=== PATIENT | male | born 1995 | race Caucasian/White ===

== ENCOUNTER → 2024-08-18 | Outpatient (CLI) | payer OTHER, SELFPAY ==
[2024-08-18 13:01] LABS: Hematocrit 38.2 % (40-54); Hemoglobin 12.7 g/dL (13.0-16.5); Mean Corp Hgb Conc 33.2 g/dL (32-36); Mean Corpuscular Hgb 29.1 pg (27.0-32.0); Mean Corpuscular Volume 87.4 fL (80-94); Mean Platelet Vol. 8.9 fl (6.2-12.0); Platelet Count 219 K/mm3 (150-450); RBC Distribution Width CV 11.9 % (11.6-14.6); RBC Distribution Width SD 38.5 fl (35.1-43.9); Red Blood Count 4.37 M/mm3 (4.6-6.2); White Blood Count 5.2 K/mm3 (4.4-11.0)
[2024-08-18 13:20] LABS: Vitamin D,25 Hydroxy 7.6 ng/mL
[2024-08-18 13:27] LABS: Amphetamine Urine VISTA NEGATIVE (<1000 ng/mL); Barbiturate Urine VISTA NEGATIVE (< 200 ng/mL); Benzodiazepine Urine VISTA NEGATIVE (< 200 ng/mL); Cocaine Urine VISTA NEGATIVE (< 300 ng/mL); Ecstacy Urine VISTA NEGATIVE (< 500 ng/mL); Methadone Urine VISTA NEGATIVE (< 300 ng/mL); PCP Urine VISTA NEGATIVE (< 25 ng/mL); THC Urine VISTA NEGATIVE (< 50 ng/mL); Vista UDS pH Range 6
[2024-08-18 13:29] LABS: ALB/GLOB Ratio 1.2 RATIO (0.9-2.4); AST(SGOT) 7 U/L (15-37); Alanine Aminotransfer ALT/SGPT 17 U/L (16-61); Albumin, Serum 4.1 g/dL (3.2-5.0); Alkaline Phosphatase 55 U/L (45-117); Anion Gap 6 (5-15); BUN 14 mg/dL (7-18); BUN/Creat Ratio 13.7 RATIO (10-20); Calcium,Total 9.1 mg/dL (8.5-10.1); Chloride 106 mmol/L (98-107); Creatinine, Serum 1.02 mg/dL (0.70-1.30); EST Glomerular Filtration Rate 91 mL/min (>60); Est Glom Filt Rate - Afr Amer 110 mL/min (>60); Globulin 3.4 g/dL (2.2-4.2); Glucose 102 mg/dL (74-106); Potassium 3.8 mmol/L (3.5-5.1); Protein, Total 7.5 g/dL (6.4-8.2); Sodium Level 138 mmol/L (136-145)
[2024-08-19 12:28] LABS: Iron 66 ug/dL (65-175)
[2024-08-19 12:30] LABS: Iron Binding Capacity,Total 332 ug/dL (250-450)
[2024-08-19 12:57] LABS: Vitamin B12 488 pg/mL (211-911)
== END | disposition home or self-care (01) ==
PROVIDERS: PCP Nurse Practitioner Family; Referring Provider Nurse Practitioner Family; Visit Provider Nurse Practitioner Family
DX: D64.9 Anemia, unspecified (principal); F90.0 Attention-deficit hyperactivity disorder, predominantly inattentive type; F41.1 Generalized anxiety disorder
CPT/HCPCS: 36415; 80053; 80307; 82306; 82607; 83540; 83550; 84443; 85027

== ENCOUNTER 2025-01-15 10:14 | Emergency (ER) | payer OTHER, SELFPAY ==
[2025-01-15 10:15] VITALS: BP 141/88; PULSE 82; RESP 16; TEMP 36.2; O2SAT 100; BMI 23.9
--- NOTE | 2025-01-15 10:34 | EDS_ITS ---
HPI History of Present Illness Chief Complaint: Eye Problem Informant: patient Narrative Narrative: Patient is a 29-year-old male presenting with left sided eye pain. He states he normally wears contact lenses but his eye has been dry and itchy over the past few days so he had not been wearing them. He put the back in last night before going to work. Throughout the night he had increased eye pain mostly in the left but some discomfort on the right as well. He states there is associated light sensitivity and and he feels it is hard to open his left eye. He states the pain is sharp and scratching in nature. It hurts when he blinks as well. After work he got some gas station eyedrops which helped for the right eye but not the left. [facility] who did an eye exam and from what he describes applied tetracaine and did a fluorescein exam. They are concerned about the amount of uptake they were seen with fluorescein and recommend he come to the ER for further evaluation. Patient does not think he has contact send right now but states is possible there could be wood stuck as he does sleep with him. He denies any associated headache, nausea or vomiting. Denies any significant vision changes when he is wearing his glasses. 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 01/15/25 Unknown Rx %) eye drops (Zaditor) symptoms #5 mL Allergy/AdvReac Type Severity Reaction Status Date / Time No Known Allergies Allergy Verified 01/15/25 10:26 Social History Smoking Status: Current every day smoker tobacco type: cigarettes ROS ROS ED Constitutional Constitutional ED: Denies chills or fever(s) Eyes Eyes: Reports other Details: Bilateral eye pain left worse than right ; Denies change in vision ENT ENT ED: Reports rhinorrhea; Denies sore throat Respiratory/Chest Respiratory/Chest: Denies cough or dyspnea Gastrointestinal Gastrointestinal: Denies nausea or vomiting Integumentary Denies rash Neurologic Neurologic: Denies headache(s) EXAM Physical Exam Const Vital Signs: 01/15/25 10:15 Temperature 97.2 F L Temperature Source Temporal Pulse Rate 82 Respiratory Rate 16 Blood Pressure 141/88 H Blood Pressure Mean 105 Pulse Ox 100 Oxygen Delivery Method Room Air Positive well nourished and well developed General Appearance ED: well developed and NAD HEENT atraumatic Nose: external nose normal Eyes Eyes Narrative: Mild edema of the eyelids, left worse than right. No significant drainage appreciated. Conjunctival injection present bilaterally but more pronounced on the left. EOMI, PERRL. Hyperemia noticed of the upper and lower eyelids inner surface on the left. On fluorescein exam there is punctate uptake throughout the anterior eye on the left. No significant uptake on the right. No ulceration appreciated. Negative Sidel sign. Neck supple Resp normal respiratory effort Cardio regular rate and regular rhythm Neuro oriented x3 and CN's II-XII intact bilaterally Sensorium / Orientation: alert Motor Exam: Negative for general weakness Skin Rashes: no rashes MDM MDM MDM Narrative Medical decision making narrative: Patient evaluated for bilateral eye pain that significantly worse in the left eye while working tonight and wearing his contact lenses. Differential includes corneal abrasion, allergic conjunctivitis, retained contact and bacterial conjunctivitis. Fluorescein exam is most consistent with allergic conjunctivitis/dry eye with possible superimposed corneal abrasion. Clinical picture over the past few days is more consistent with allergies. Patient has applied erythromycin ointment to his eyes today. Will be given a prescription for Cipro otic drops to use throughout the day and antihistamine eyedrops as well. Instructed follow-up with ophthalmology. Counseled to not wear contact lenses until follows up with ophthalmology. Is given other remaining tetracaine for his pain but counseled to not use that for more than 24 hours and the risk of corneal ulceration with prolonged use. He does verbalize agreement understand with this. Also instructed to start taking a daily antihistamine. Given return precautions. Discharged home in stable condition. Discharge Plan Triage Chief Complaint: Eye Problem ED Provider: Cheryl Varner Dx/Rx/DC Orders Clinical Impression: Acute allergic conjunctivitis of both eyes, Corneal abrasion of left eye due to contact lens Instructions: ED Conjunctivitis, Allergic, ED Corneal Abrasion Prescriptions: New cetirizine [Zyrtec] 10 mg tablet 10 mg PO DAILY Qty: 14 0RF ketotifen fumarate [Zaditor] 0.025 % (0.035 %) drops 1 drp EACH EYE BID PRN (Reason: allergy symptoms) Qty: 5 0RF Rx Instructions: administer at least 8 hours apart ciprofloxacin HCl 0.3 % drops See Rx Instructions .ROUTE .COMPLEX Qty: 2.5 0RF Rx Instructions: put 1-2 drps in affected eye(s) every 2hr up to 8 times/day x2days; then 4 times/day x5days- left eye No Action ondansetron [Zofran ODT] 4 MG tablet,disintegrating 4 mg PO Q4H PRN PRN (Reason: Nausea) Qty: 7 0RF Rx Instructions: Primary Care Provider: Roxi Cabrera Referrals: Jeremías Davalos MD [Med Staff - Active Staff] - Roxi Cabrera, PATIENT EXPERIENCE COORDINATOR-C [Primary Care Provider] - Activity Restrictions/Additional Instructions: You likely have a mixture of allergic conjunctivitis with a superimposed corneal abrasion to your left eye. Apply the antihistamine eyedrops (ketotifen) to both eyes twice a day for this. Take daily Zyrtec. Use the ciprofloxacin drops to the left eye as instructed. At nighttime I recommend using the erythromycin ointment given here to the left eye. You were given the remainder of the numbing eyedrops (tetracaine). Please make sure you do not use this for more than 24 hours because of risk of corneal ulceration and further complications. Do not wear contacts until cleared by ophthalmology. Please call the [facility] tomorrow to arrange close follow-up. Let them know you are seen in the ER. Print Language: Slovenian Disposition Disposition: Home, Self Care
--- OUTSIDE RECORDS SUMMARY | 2025-01-15 10:39 | XMS RPT_ITS | CCD ---
Author Organization [facility] Care Team Providers Care Heat Treat Puller Name Role Phone Unavailable Primary Care Provider Ju FERNANDO, Roxi Referring Ju FERNANDO, Roxi Attending Ju FERNANDO, Roxi Primary Care Avelino trujillo Allergies Allergy Classification Reported Allergen(s) Allergy Type Date of Onset Reaction(s) Facility (2 sources) Animal Dander; Translations: [ANIMAL DANDER] Drug Allergy 06-18-2021 Intolerance [facility] Medications Current Medications Medication Drug Class(es) Dates Sig (Normalized) Sig (Original) amoxicillin 500 mg oral capsule (1 source) Penicillin-class Antibacterial Start: 10-01-2022 End: 10-11-2022 take 1 capsule by mouth twice daily amoxicillin (POLYMOX, AMOXIL) 500 mg capsule Take 1 capsule by mouth twice daily for 10 days. 20 capsule 0 10/01/2022 10/11/2022 Active Comment on above: Take 1 capsule by [facility] twice daily for 10 days. Problems Problem Classification Problem Date Documented Da te Episodic/Chronic Deficiency and other anemia (1 source) Anemia, unspecified; Translations: [Anemia, unspecified] Onset: 09-07-2024 Episodic Immunizations and screening for infectious disease (1 source) Suspected disease caused by 2019-nCoV; Translations: [Suspected COVID-19 virus infection] Episodic Other upper respiratory infections (2 sources) Sore throat symptom; Translations: [Acute pharyngitis, unspecified] Episodic Results Test Name Value Interpretation Reference Range Facil liberty Lemonon 08-19-2024 Iron [Mass/Vol] 66 ug/dL Normal 65-175 [facility] Comment on above: Performed By: #### L 503.6183 #### [facility] [address] [place], [address] Iron Binding Capacity,Totalo n 08-19-2024 TIBC 332 ug/dL Normal 250-450 [facility] Comment on above: Performed By: #### L 503.6075, L503.0105 #### [facility] [address] [place], [address] Vitamin B12on 08-19-2024 Cobalamin (Vitamin B12) [Mass/Vol] 488 pg/mL Normal 211-911 [facility] Comment on above: Performed By: #### L 503.6075, L503.0105 #### [facility] [address] [place], [address] CBC-Complete Blood Cnt No Di ffon 08-18-2024 Erythrocyte distribution width (RBC) [Ratio] 11.9 % Normal 11.6-14.6 [facility] Comment on above: Performed By: #### L 506.1000, L500.4050, L501.9520, L505.5000, L100.0500 #### [facility] [address] [place], [address] Hematocrit (Bld) [Volume fraction] 38.2 % Low 40-54 [facility] Comment on above: Performed By: #### L 506.1000, L500.4050, L501.9520, L505.5000, L100.0500 #### [facility] [address] [place], [address] Hemoglobin (Bld) [Mass/Vol] 12.7 g/dL Low 13.0-16.5 [facility] Comment on above: Performed By: #### L 506.1000, L500.4050, L501.9520, L505.5000, L100.0500 #### [facility] [address] [place], [address] MCH (RBC) [Entitic mass] 29.1 pg Normal 27.0-32.0 [facility] Comment on above: Performed By: #### L 506.1000, L500.4050, L501.9520, L505.5000, L100.0500 #### [facility] [address] [place], [address] MCHC (RBC) [Mass/Vol] 33.2 g/dL Normal 32-36 [facility] Comment on above: Performed By: #### L 506.1000, L500.4050, L501.9520, L505.5000, L100.0500 #### [facility] [address] [place], [address] MCV (RBC) [Entitic vol] 87.4 fL Normal 80-94 [facility] Comment on above: Performed By: #### L 506.1000, L500.4050, L501.9520, L505.5000, L100.0500 #### [facility] [address] [place], [address] Platelet mean volume (Bld) [Entitic vol] 8.9 fL Normal 6.2-12.0 [facility] Comment on above: Performed By: #### L 506.1000, L500.4050, L501.9520, L505.5000, L100.0500 #### [facility] [address] [place], [address] Platelets (Bld) [#/Vol] 219 10*3/uL Normal 150-450 [facility] Comment on above: Performed By: #### L 506.1000, L500.4050, L501.9520, L505.5000, L100.0500 #### [facility] [address] [place], [address] RBC (Bld) [#/Vol] 4.37 10*6/uL Low 4.6-6.2 [facility] Comment on above: Performed By: #### L 506.1000, L500.4050, L501.9520, L505.5000, L100.0500 #### [facility] [address] [place], [address] RDW SD 38.5 fl Normal 35.1-43.9 [facility] Comment on above: Performed By: #### L 506.1000, L500.4050, L501.9520, L505.5000, L100.0500 #### [facility] [address] [place], [address] WBC (Bld) [#/Vol] 5.2 10*3/uL Normal 4.4-11.0 [facility] Comment on above: Performed By: #### L 506.1000, L500.4050, L501.9520, L505.5000, L100.0500 #### [facility] [address] [place], [address] Comprehensive Metabolic Prof [facility] 08-18-2024 Albumin [Mass/Vol] 4.1 g/dL Normal 3.2-5.0 [facility] Comment on above: Performed By: #### L 506.1000, L500.4050, L501.9520, L505.5000, L100.0500 #### [facility] [address] [place], [address] Albumin/Globulin [Mass ratio] 1.2 {ratio} Normal 0.9-2.4 [facility] Comment on above: Performed By: #### L 506.1000, L500.4050, L501.9520, L505.5000, L100.0500 #### [facility] [address] [place], [address] ALK P 55 U/L Normal 45-117 [facility] Comment on above: Performed By: #### L 506.1000, L500.4050, L501.9520, L505.5000, L100.0500 #### [facility] [address] [place], [address] ALT [Catalytic activity/Vol] 17 U/L Normal 16-61 [facility] Comment on above: Performed By: #### L 506.1000, L500.4050, L501.9520, L505.5000, L100.0500 #### [facility] [address] [place], [address] AST [Catalytic activity/Vol] 7 U/L Low 15-37 [facility] Comment on above: Performed By: #### L 506.1000, L500.4050, L501.9520, L505.5000, L100.0500 #### [facility] [address] [place], [address] Bilirubin [Mass/Vol] 0.90 mg/dL Normal 0.20-1.00 [facility] Comment on above: Result Comment: For patients on eltrombopag therapy, use of Dimension Durant TBIL is not recommended. Performed By: #### L 506.1000, L500.4050, L501.9520, L505.5000, L100.0500 #### [facility] [address] [place], [address] BUN/CRE 13.7 RATIO Normal 10-20 [facility] Comment on above: Performed By: #### L 506.1000, L500.4050, L501.9520, L505.5000, L100.0500 #### [facility] [address] [place], [address] CA,Total 9.1 mg/dL Normal 8.5-10.1 [facility] Comment on above: Performed By: #### L 506.1000, L500.4050, L501.9520, L505.5000, L100.0500 #### [facility] [address] [place], [address] Chloride [Moles/Vol] 106 mmol/L Normal 98-107 [facility] Comment on above: Performed By: #### L 506.1000, L500.4050, L501.9520, L505.5000, L100.0500 #### [facility] [address] [place], [address] CO2 [Moles/Vol] 26.0 mmol/L Normal 21.0-32.0 [facility] Comment on above: Performed By: #### L 506.1000, L500.4050, L501.9520, L505.5000, L100.0500 #### [facility] [address] [place], [address] Creatinine [Mass/Vol] 1.02 mg/dL Normal 0.70-1.30 [facility] Comment on above: Result Comment: The validity of the calculated GFR GFRAA in patients over 70 years has not been determined. Clinical correlation is essential. Performed By: #### L 506.1000, L500.4050, L501.9520, L505.5000, L100.0500 #### [facility] [address] [place], [address] EST GFR - AA 110 mL/min Normal >60 [facility] Comment on above: Result Comment: Afri can Greek GFR Calc Performed By: #### L 506.1000, L500.4050, L501.9520, L505.5000, L100.0500 #### [facility] [address] [place], [address] GAP 6 Normal 5-15 [facility] Comment on above: Performed By: #### L 506.1000, L500.4050, L501.9520, L505.5000, L100.0500 #### [facility] [address] [place], [address] GFR/1.73 sq M.predicted among non-blacks MDRD (S/P/Bld) [Vol rate/Area] 91 mL/min/{1.73_m2} Normal >60 [facility] Comment on above: Result Comment: Non- GFR Calc Performed By: #### L 506.1000, L500.4050, L501.9520, L505.5000, L100.0500 #### [facility] [address] [place], [address] Globulin (S) [Mass/Vol] 3.4 g/dL Normal 2.2-4.2 [facility] Comment on above: Performed By: #### L 506.1000, L500.4050, L501.9520, L505.5000, L100.0500 #### [facility] [address] [place], [address] Glucose [Mass/Vol] 102 mg/dL Normal 74-106 [facility] Comment on above: Result Comment: Fast ing Glucose result from 100 to 125 mg/dL suggests IMPAIRED HOMEOSTASIS per A.D.A. criteria. Performed By: #### L 506.1000, L500.4050, L501.9520, L505.5000, L100.0500 #### [facility] [address] [place], [address] Potassium [Moles/Vol] 3.8 mmol/L Normal 3.5-5.1 [facility] Comment on above: Performed By: #### L 506.1000, L500.4050, L501.9520, L505.5000, L100.0500 #### [facility] [address] [place], [address] Sodium [Moles/Vol] 138 mmol/L Normal 136-145 [facility] Comment on above: Performed By: #### L 506.1000, L500.4050, L501.9520, L505.5000, L100.0500 #### [facility] [address] [place], [address] T PROT 7.5 g/dL Normal 6.4-8.2 [facility] Comment on above: Performed By: #### L 506.1000, L500.4050, L501.9520, L505.5000, L100.0500 #### [facility] [address] [place], [address] Urea nitrogen [Mass/Vol] 14 mg/dL Normal 7-18 [facility] Comment on above: Performed By: #### L 506.1000, L500.4050, L501.9520, L505.5000, L100.0500 #### [facility] [address] [place], [address] Thyroid Stim Hormone (TSH)on 08-18-2024 TSH 1.170 uIU/mL Normal 0.358-3.740 [facility] Comment on above: Performed By: #### L 506.1000, L500.4050, L501.9520, L505.5000, L100.0500 #### [facility] [place], [place], [facility] Urine Drug Screen (VISTA)on 08-18-2024 AMPHETAMINES Negative Normal <1000 ng/mL [facility] Comment on above: Order Comment: UNK Performed By: #### L 506.1000, L500.4050, L501.9520, L505.5000, L100.0500 #### [facility] [place], [address] BARBITIURATES Negative Normal < 200 ng/mL [facility] Comment on above: Order Comment: UNK Performed By: #### L 506.1000, L500.4050, L501.9520, L505.5000, L100.0500 #### [facility] [address] [place], [address] BENZODIAZIPINE Negative Normal < 200 ng/mL [facility] Comment on above: Order Comment: UNK Performed By: #### L 506.1000, L500.4050, L501.9520, L505.5000, L100.0500 #### [facility] [address] [place], [address] COCAINE Negative Normal < 300 ng/mL [facility] Comment on above: Order Comment: UNK Performed By: #### L 506.1000, L500.4050, L501.9520, L505.5000, L100.0500 #### [facility] [address] [place], [address] ECSTACY Negative Normal < 500 ng/mL [facility] Comment on above: Order Comment: UNK Performed By: #### L 506.1000, L500.4050, L501.9520, L505.5000, L100.0500 #### [facility] [address] [place], [address] METHADONE Negative Normal < 300 ng/mL [facility] Comment on above: Order Comment: UNK Performed By: #### L 506.1000, L500.4050, L501.9520, L505.5000, L100.0500 #### [facility] [address] [place], [address] OPIATES Negative Normal < 300 ng/mL [facility] Comment on above: Order Comment: UNK Performed By: #### L 506.1000, L500.4050, L501.9520, L505.5000, L100.0500 #### [facility] [address] [place], [address] PCP Negative Normal < 25 ng/mL [facility] Comment on above: Order Comment: UNK Performed By: #### L 506.1000, L500.4050, L501.9520, L505.5000, L100.0500 #### [facility] [address] [place], [address] THC Negative Normal < 50 ng/mL [facility] Comment on above: Order Comment: UNK Performed By: #### L 506.1000, L500.4050, L501.9520, L505.5000, L100.0500 #### [facility] [address] [place], [address] VISTA UDS PH 6 Normal [facility] Comment on above: Order Comment: UNK Performed By: #### L 506.1000, L500.4050, L501.9520, L505.5000, L100.0500 #### [facility] [address] [place], [address] Vitamin D,25 Hydroxyon 08-18 Vitamin D 25-OH 7.6 ng/mL Normal [facility] Comment on above: Result Comment: Claire min D 25(OH) Status Range Deficiency <20 ng/mL (50nmol/L) Insufficiency 20 - 30 ng/mL (50 - 75 nmol/L) Sufficiency 30 - 100 ng/mL (75 - 250 nmol/L) Toxicity >100 ng/mL (>250 nmol/L) Performed By: #### L 506.1000, L500.4050, L501.9520, L505.5000, L100.0500 #### [facility] [address] [place], [address] CNOVon 10-01-2022 CNOV Office Visit (UCWSTR) ---- STACEY CARRIZALES ([id number]) 1995 M Date Time Provider Department 10/01/22 10:15 AM TELLY AWAD [facility] During your visit today, we recorded the following information about you: Temperature Pulse Respiration Blood pressure 99.7 degrees 86/minute 16/minute 108/78 Weight 72.4 kg Telly Awad APRN.SIDE GLUER 10/01/2022 10:28 AM Signed Subjective HPI Nontoxic-appearing male presents to urgent care with a chief complaint of sore throat. Duration of symptoms 4 days. Associated symptoms sore throat, fever, nausea, and headache. Patient states history of strep throat in the past with similar signs of symptoms. Patient states positive sick contacts. Patient denies any trismus, difficulty swallowing, difficulty handling secretions, decreased range of motion of neck, vomiting, abdominal pain, visual changes, acute headache, cough, pleuritic pain, or change in bowel or bladder habits. Past medical history prescription medication use allergies reviewed. .Patient presents with: Sore Throat: ST, congestion, VENTURA and bodyaches x 4 days PAST MEDICAL HISTORY Diagnosis Date Collar bone fracture 1997 NEGATIVE MEDICAL HISTORY 12-30-2011 Normal Color Vision Varicella 2001 2nd grade PAST SURGICAL HISTORY Procedure Laterality Date CIRCUMCISION W/CLAMP/OTH DEV W/BLOCK ALLERGIES Animal Dander MEDICATIONS No prescriptions on file. FAMILY HISTORY Problem Relation Age of Onset Diabetes Father Social History Tobacco Use Smoking status: Never Smokeless tobacco: Never Substance Use Topics Alcohol use: No Drug use: No BP 108/78 Pulse 86 Temp 37.6 ?C (99.7 ?F) (Tympanic) Resp 16 Wt 72.4 kg (159 lb 9.6 oz) SpO2 96% Review of Systems Constitutional: Positive for fever. Negative for chills and malaise/fatigue. HENT: Positive for congestion and sore throat. Negative for ear discharge, ear pain and sinus pain. Eyes: Negative for blurred vision, pain, discharge and redness. Respiratory: Negative for cough, hemoptysis, sputum production, shortness of breath, wheezing and stridor. Cardiovascular: Negative for chest pain. Gastrointestinal: Negative for abdominal pain, diarrhea, nausea and vomiting. Musculoskeletal: Negative for myalgias. Skin: Negative for itching and rash. Neurological: Positive for headaches. Negative for dizziness. Objective Physical Exam Constitutional: General: He is not in acute distress. Appearance: He is not diaphoretic. HENT: Head: Normocephalic. Jaw: No trismus, tenderness, swelling or pain on movement. Mouth/Throat: Lips: Shafter. Mouth: Mucous membranes are moist. Pharynx: Uvula midline. Posterior oropharyngeal erythema present. No pharyngeal swelling, oropharyngeal exudate or uvula swelling. Tonsils: No tonsillar exudate or tonsillar abscesses. Eyes: Conjunctiva/sclera: Conjunctivae normal. Pupils: Pupils are equal, round, and reactive to light. Cardiovascular: Rate and Rhythm: Normal rate and regular rhythm. Heart sounds: Normal heart sounds. Pulmonary: Effort: Pulmonary effort is normal. No tachypnea, accessory muscle usage or respiratory distress. Breath sounds: Normal breath sounds. No stridor. No wheezing, rhonchi or rales. Abdominal: Palpations: Abdomen is soft. Tenderness: There is no abdominal tenderness. There is no guarding or rebound. Musculoskeletal: Cervical back: Normal range of motion and neck supple. No rigidity or tenderness. Lymphadenopathy: Cervical: No cervical adenopathy. Skin: General: Skin is warm and dry. Neurological: Mental Status: He is alert and oriented to person, place, and time. ASSESSMENT/PLAN: 1. Sore throat - ICD9: 462, ICD10: J02.9 (primary diagnosis) - STREP A MOLECULAR (POC) 2. Strep throat - ICD9: 034.0, ICD10: J02.0 Strep test positive. Placed on amoxicillin. Red flags prompt reevaluation discussed. Patient was educated on supportive therapies. Patient will follow up with primary care provider as needed. Patient was instructed to immediately proceed to emergency room for any new, worsening, or symptoms lasting longer than anticipated. The patient's clinical presentation is otherwise unremarkable at this time. Based on exam and clinical finding, the patient is stable for discharge. Plan of care was discussed with patient. Patient verbalizes understanding and agrees to plan of care. This note was generated using [employer] software. It may contain errors in wording, punctuation, or spelling. Telly Awad APRN.PADDY Awad APRN.CNP 10/01/2022 10:28 AM Signed How to Manage Common Symptoms Associated with COVID for Adults Fever- Fever is a temperature over 100.4 F and can occur when the body is fighting an infection. To help treat a fever: Drink plenty of fluids and stay well hydrated. Eat small amounts of easy to digest food. R (more content not included)... Normal [facility] FLUABV + SARS-CoV-2 Pnl Resp EDUAR+prbon 10-01-2022 Influenza virus A and B RNA and SARS-CoV-2 (COVID-19) N gene panel EDUAR+probe (Resp) COVID 19 RESULT: Detected The method used is RT-PCR or an equivalent NAAT method. Reference Range (the expected result in uninfected individuals): Not detected INFLUENZA A PCR: Not detected INFLUENZA B PCR: Not detected Abnormal [facility] Comment on above: Performed By: #### 9 [id number] #### [facility] CLIA [id number] [address] [place] [address] [facility] Vital Signs Date Time Vital Sign Value Performing Clinician Tulio stout 10-01-2022 09:58-0500 Body temperature 99.7 [degF] Telly Awad SHEET METAL ENGINEER.SIDE GLUER Work Phone: [facility] 10-01-2022 09:58-0500 Body weight 72.39 kg Telly Awad SHEET METAL ENGINEER.SIDE GLUER Work Phone: [facility] 10-01-2022 09:58-0500 Diastolic blood pressure 78 mm[Hg] Telly Awad SHEET METAL ENGINEER.SIDE GLUER Work Phone: [facility] 10-01-2022 09:58-0500 Heart rate 86 /min Telly Awad SHEET METAL ENGINEER.SIDE GLUER Work Phone: [facility] 10-01-2022 09:58-0500 Respiratory rate 16 /min Telly Awad SHEET METAL ENGINEER.SIDE GLUER Work Phone: [facility] 10-01-2022 09:58-0500 SaO2% (BldA) [Mass fraction] 96 % Telly Awad SHEET METAL ENGINEER.SIDE GLUER Work Phone: [facility] 10-01-2022 09:58-0500 Systolic blood pressure 108 mm[Hg] Telly Awad SHEET METAL ENGINEER.SIDE GLUER Work Phone: [facility] Encounters Encounter Date Encounter Type Care Provider Facility Start: 08-18-2024 End: 08-18-2024 ambulatory Roxi Cabrera [facility] Facility:[facility] Start: 10-01-2022 End: 10-01-2022 ambulatory Facility:[facility] Start: 10-01-2022 End: 10-01-2022 Office outpatient visit 15 minutes Telly Awad APRN.SIDE GLUER Work Phone: [facility] Comment on above: Sore throat (Primary Dx); Strep throat; Suspected COVID-19 virus infection Plan of Treatment Date Care Activity Detail Author Start: 10-01-2022 End: 10-15-2022 Influenza virus A and B RNA and SARS-CoV-2 (COVID-19) N gene panel - Respiratory specimen by EDUAR with probe detection [facility] Work Phone: Comment on above: Expected: 10/01/2022 , Expires: 10/15/2022 Start: 08-10-2022 DEPRESSION ASSESSMENT DEPRESSION ASS ESSMENT [facility] Start: 04-10-2022 Influenza vaccination INFLUENZA (#1) [facility] Start: 12-29-2021 Urine microalbumin profile DTAP,TDAP,TD (7 - Td or Tdap) [facility] Start: 09-24-2021 COVID-19 VACCINE (3 - Booster for Fatimah series) COVID-19 VACCINE (3 - Booster for Fatimah series) [facility] Start: 2012 HEPATITIS C SCREENING HEPATITIS C SC REENING [facility] Start: 2012 HIV SCREENING HIV SCREENING [facility] STREP A MOLECULAR (POC) STREP A MOLECULAR (POC) Microbiology Routine Sore throat Ordered: 10/01/2022 [facility] Work Phone: Comment on above: Ordered: 10/01/2022 Immunizations Immunization Date Immunization Notes Care Provider Kaushal wise 02-03-2013 hepatitis A vaccine, unspecified formulation Telly Awad APRN.CNP Work Phone: [facility] Work Phone: 08-04-2012 hepatitis A vaccine, unspecified formulation Telly Awad APRN.SIDE GLUER Work Phone: [facility] 08-04-2012 influenza virus vaccine, live, attenuated, for intranasal use Telly Awad APRN.SIDE GLUER Work Phone: [facility] 08-04-2012 Meningococcal, MCV4, unspecified conjugate formulation(groups A, C, Y and W-135) Telly Awad APRN.CNP Work Phone: [facility] 12-30-2011 tetanus toxoid, reduced diphtheria toxoid, and acellular pertussis vaccine, adsorbed [facility] SHEET METAL ENGINEER.SIDE GLUER Work Phone: [facility] 12-05-1999 diphtheria, tetanus toxoids and acellular pertussis vaccine [facility] SHEET METAL ENGINEER.SIDE GLUER Work Phone: [facility] 12-05-1999 measles, mumps and rubella virus vaccine [facility] SHEET METAL ENGINEER.SIDE GLUER Work Phone: [facility] 12-05-1999 poliovirus vaccine, inactivated [facility] SHEET METAL ENGINEER.SIDE GLUER Work Phone: [facility] 08-10-1997 [facility].SIDE GLUER Work Phone: [facility] 12-03-1995 diphtheria, tetanus toxoids and acellular pertussis vaccine [facility] SHEET METAL ENGINEER.SIDE GLUER Work Phone: [facility] 12-03-1995 haemophilus influenz ae type b vaccine, HbOC conjugate [facility] SHEET METAL ENGINEER.SIDE GLUER Work Phone: [facility] 09-03-1995 hepatitis B vaccine, pediatric or pediatric/adolescent dosage [facility] SHEET METAL ENGINEER.SIDE GLUER Work Phone: [facility] 09-03-1995 measles, mumps and rubella virus vaccine [facility] SHEET METAL ENGINEER.SIDE GLUER Work Phone: [facility] 04-02-1995 diphtheria, tetanus toxoids and acellular pertussis vaccine [facility] SHEET METAL ENGINEER.SIDE GLUER Work Phone: [facility] 04-02-1995 haemophilus influenz ae type b vaccine, HbOC conjugate [facility] SHEET METAL ENGINEER.SIDE GLUER Work Phone: [facility] 04-02-1995 poliovirus vaccine, inactivated [facility] SHEET METAL ENGINEER.SIDE GLUER Work Phone: [facility] 01-29-1995 diphtheria, tetanus toxoids and acellular pertussis vaccine [facility] SHEET METAL ENGINEER.SIDE GLUER Work Phone: [facility] 01-29-1995 haemophilus influenz ae type b vaccine, HbOC conjugate [facility] SHEET METAL ENGINEER.SIDE GLUER Work Phone: [facility] 01-29-1995 hepatitis B vaccine, pediatric or pediatric/adolescent dosage [facility] SHEET METAL ENGINEER.SIDE GLUER Work Phone: [facility] 01-29-1995 poliovirus vaccine, inactivated [facility] SHEET METAL ENGINEER.SIDE GLUER Work Phone: [facility] 1994 diphtheria, tetanus toxoids and acellular pertussis vaccine [facility] SHEET METAL ENGINEER.SIDE GLUER Work Phone: [facility] 1994 haemophilus influenz ae type b vaccine, HbOC conjugate [facility] SHEET METAL ENGINEER.SIDE GLUER Work Phone: [facility] 1994 hepatitis B vaccine, pediatric or pediatric/adolescent dosage [facility] SHEET METAL ENGINEER.SIDE GLUER Work Phone: [facility] 1994 poliovirus vaccine, inactivated [facility] SHEET METAL ENGINEER.SIDE GLUER Work Phone: [facility] Payers Date Payer Category Payer Self-pay 2022 Unknown [employer] P[employer] [id number] 2022-Present [phone] [facility] [address] [place] [id number] PPO [id number] 2022 Unknown [id number] Unknown [id number] Social History Date Type Detail Facility Start: 10-01-2022 Tobacco smoking stat us NHIS Never smoked tobacco [facility] Start: 10-01-2022 Tobacco use and exposure Smoke less tobacco non-user [facility] Start: 10-01-2022 Alcohol intake Current non-dr steelworker of alcohol (finding) [facility] Start: 1995 Sex Assigned At Not on file [facility] Progress note 10-01-2022 Note Date & Type Note Facility 10-01-2022 Note HNO ID: [id number] Author: Telly Awad APRN.SIDE GLUER Service: ? Author Type: Nurse Practitioner Type: Progress Notes Filed: 10/01/2022 10:28 AM Note Text: Subjective HPI Nontoxic-appearing male presents to urgent care with a chief complaint of sore throat. Duration of symptoms 4 days. Associated symptoms sore throat, fever, nausea, and headache. Patient states history of strep throat in the past with similar signs of symptoms. Patient states positive sick contacts. Patient denies any trismus, difficulty swallowing, difficulty handling secretions, decreased range of motion of neck, vomiting, abdominal pain, visual changes, acute headache, cough, pleuritic pain, or change in bowel or bladder habits. Past medical history prescription medication use allergies reviewed. .Patient presents with: Sore Throat: ST, congestion, VENTURA and bodyaches x 4 days PAST MEDICAL HISTORY Diagnosis Date Collar bone fracture 1997 NEGATIVE MEDICAL HISTORY 12-30-2011 Normal Color Vision Varicella 2001 2nd grade PAST SURGICAL HISTORY Procedure Laterality Date CIRCUMCISION W/CLAMP/OTH DEV W/BLOCK ALLERGIES Animal Dander MEDICATIONS No prescriptions on file. FAMILY HISTORY Problem Relation Age of Onset Diabetes Father Social History Tobacco Use Smoking status: Never Smokeless tobacco: Never Substance Use Topics Alcohol use: No Drug use: No BP 108/78 Pulse 86 Temp 37.6 ?C (99.7 ?F) (Tympanic) Resp 16 Wt 72.4 kg (159 lb 9.6 oz) SpO2 96% Review of Systems Constitutional: Positive for fever. Negative for chills and malaise/fatigue. HENT: Positive for congestion and sore throat. Negative for ear discharge, ear pain and sinus pain. Eyes: Negative for blurred vision, pain, discharge and redness. Respiratory: Negative for cough, hemoptysis, sputum production, shortness of breath, wheezing and stridor. Cardiovascular: Negative for chest pain. Gastrointestinal: Negative for abdominal pain, diarrhea, nausea and vomiting. Musculoskeletal: Negative for myalgias. Skin: Negative for itching and rash. Neurological: Positive for headaches. Negative for dizziness. Objective Physical Exam Constitutional: General: He is not in acute distress. Appearance: He is not diaphoretic. HENT: Head: Normocephalic. Jaw: No trismus, tenderness, swelling or pain on movement. Mouth/Throat: Lips: Shafter. Mouth: Mucous membranes are moist. Pharynx: Uvula midline. Posterior oropharyngeal erythema present. No pharyngeal swelling, oropharyngeal exudate or uvula swelling. Tonsils: No tonsillar exudate or tonsillar abscesses. Eyes: Conjunctiva/sclera: Conjunctivae normal. Pupils: Pupils are equal, round, and reactive to light. Cardiovascular: Rate and Rhythm: Normal rate and regular rhythm. Heart sounds: Normal heart sounds. Pulmonary: Effort: Pulmonary effort is normal. No tachypnea, accessory muscle usage or respiratory distress. Breath sounds: Normal breath sounds. No stridor. No wheezing, rhonchi or rales. Abdominal: Palpations: Abdomen is soft. Tenderness: There is no abdominal tenderness. There is no guarding or rebound. Musculoskeletal: Cervical back: Normal range of motion and neck supple. No rigidity or tenderness. Lymphadenopathy: Cervical: No cervical adenopathy. Skin: General: Skin is warm and dry. Neurological: Mental Status: He is alert and oriented to person, place, and time. ASSESSMENT/PLAN: 1. Sore throat - ICD9: 462, ICD10: J02.9 (primary diagnosis) - STREP A MOLECULAR (POC) 2. Strep throat - ICD9: 034.0, ICD10: J02.0 Strep test positive. Placed on amoxicillin. Red flags prompt reevaluation discussed. Patient was educated on supportive therapies. Patient will follow up with primary care provider as needed. Patient was instructed to immediately proceed to emergency room for any new, worsening, or symptoms lasting longer than anticipated. The patient's clinical presentation is otherwise unremarkable at this time. Based on exam and clinical finding, the patient is stable for discharge. Plan of care was discussed with patient. Patient verbalizes understanding and agrees to plan of care. This note was generated using [employer] software. It may contain errors in wording, punctuation, or spelling. Telly Awad APRN.PADDY [facility] Instructions 10-01-2022 Patient Instructions Note Date & Type Note Facility 10-01-2022 Instructions Telly Awad APRN.PADDY - 10/01/2022 10:28 AM EST How to Manage Common Symptoms Associated with COVID for Adults Fever- Fever is a temperature over 100.4 F and can occur when the body is fighting an infection. To help treat a fever: Drink plenty of fluids and stay well hydrated. Eat small amounts of easy to digest food. Rest. Your body needs rest to recover, but getting up and moving around the house frequently is a good idea. You should try to continue doing your normal daily activities (bathing, toileting, grooming, cooking), though you will probably feel tired, and need to rest often. Avoid any heavy activity or exercise, as this will increase your body temperature. Dress in light clothing and stay covered in a light sheet. Keep the room temperature cool. Take a slightly warm (not cold or cool) bath, or apply damp washcloths to the forehead and wrists. Cough- Cough is a common symptom associated with COVID and can be bothersome. To help treat a cough: Stay well hydrated. Try warm water or tea with lemon and/or honey to help soothe the cough. Use a humidifier to add moisture to the air. Try a product with menthol, like a cough drop or a rub for your chest such as Vicks, which can help reduce cough. Try cough drops. Avoid smoking and other strong odors or perfumes. Try breathing exercises to keep your lungs open and clear. Take a big deep breath through your nose and hold for 5 seconds before slowly releasing. Repeat frequently, while you are awake. Congestion- Runny nose or nasal congestion can occur with COVID. Treatment can help relieve symptoms: Try OTC nasal saline spray, or nasal saline rinse to relieve mucus congestion. Nasal strips can help keep nasal passages open, to increase airflow. Elevating your head with an extra pillow in bed can help reduce congestion. Using a humidifier can increase moisture in the air, and make breathing easier. Sore Throat- Another common symptom with COVID, can be managed at home by: Stay well hydrated. Gargle with salt water - mix teaspoon salt with 1 cup of warm water and gargle. This helps to loosen mucus in the back of the throat and may reduce discomfort. Try ice chips, popsicles or lozenges to soothe the throat. Nausea/Vomiting/Diarrhea- These are common symptoms, and staying hydrated is most important. If you are nauseous or vomiting, start with small sips of water every 10-15 minutes and increase as tolerated. You can try sucking an ice cube too. If tolerating, you can try pedialyte or Gatorade, or flat sprite or deneen-annika. Start slowly and increase as you are able to. Instead of meals, try smaller, more frequent snacks. Try eating bland foods like crackers, toast, rice, and applesauce. Avoid spicy, greasy or fried foods and dairy containing foods. Even if you aren't feeling hungry due to lack of smell or taste, it is important to try to take in some food when you are able. After drinking and eating, rest in an upright position for up to two hours as needed to help decrease nauseous feelings. Try closing your eyes, avoid moving and watching TV. Avoid strong odors that can make you feel more nauseated. When to seek emergency medical attention Look for emergency warning signs for COVID-19. If having any of these symptoms, seek emergency medical care immediately: Trouble breathing Persistent pain or pressure in the chest New confusion Inability to wake or stay awake Bluish lips or face *This list is not all possible symptoms. Please call your medical provider for any other symptoms that are severe or concerning to you. documented in this encounter [facility] History of Present illness Narrative 10-01-2022 Telly Awad APRN.CNP - 10/01/2022 10:07 AM EST Note Date & Type Note Facility 10-01-2022 History of Presen t illness Narrative Subjective HPI Nontoxic-appearing male presents to urgent care with a chief complaint of sore throat. Duration of symptoms 4 days. Associated symptoms sore throat, fever, nausea, and headache. Patient states history of strep throat in the past with similar signs of symptoms. Patient states positive sick contacts. Patient denies any trismus, difficulty swallowing, difficulty handling secretions, decreased range of motion of neck, vomiting, abdominal pain, visual changes, acute headache, cough, pleuritic pain, or change in bowel or bladder habits. Past medical history prescription medication use allergies reviewed. .Patient presents with: Sore Throat: ST, congestion, VENTURA and bodyaches x 4 days PAST MEDICAL HISTORY Diagnosis Date Collar bone fracture 1997 NEGATIVE MEDICAL HISTORY 12-30-2011 Normal Color Vision Varicella 2001 2nd grade PAST SURGICAL HISTORY Procedure Laterality Date CIRCUMCISION W/CLAMP/OTH DEV W/BLOCK ALLERGIES Animal Dander MEDICATIONS No prescriptions on file. FAMILY HISTORY Problem Relation Age of Onset Diabetes Father Social History Tobacco Use Smoking status: Never Smokeless tobacco: Never Substance Use Topics Alcohol use: No Drug use: No BP 108/78 Pulse 86 Temp 37.6 C (99.7 F) (Tympanic) Resp 16 Wt 72.4 kg (159 lb 9.6 oz) SpO2 96% Review of Systems Constitutional: Positive for fever. Negative for chills and malaise/fatigue. HENT: Positive for congestion and sore throat. Negative for ear discharge, ear pain and sinus pain. Eyes: Negative for blurred vision, pain, discharge and redness. Respiratory: Negative for cough, hemoptysis, sputum production, shortness of breath, wheezing and stridor. Cardiovascular: Negative for chest pain. Gastrointestinal: Negative for abdominal pain, diarrhea, nausea and vomiting. Musculoskeletal: Negative for myalgias. Skin: Negative for itching and rash. Neurological: Positive for headaches. Negative for dizziness. Objective Physical Exam Constitutional: General: He is not in acute distress. Appearance: He is not diaphoretic. HENT: Head: Normocephalic. Jaw: No trismus, tenderness, swelling or pain on movement. Mouth/Throat: Lips: Shafter. Mouth: Mucous membranes are moist. Pharynx: Uvula midline. Posterior oropharyngeal erythema present. No pharyngeal swelling, oropharyngeal exudate or uvula swelling. Tonsils: No tonsillar exudate or tonsillar abscesses. Eyes: Conjunctiva/sclera: Conjunctivae normal. Pupils: Pupils are equal, round, and reactive to light. Cardiovascular: Rate and Rhythm: Normal rate and regular rhythm. Heart sounds: Normal heart sounds. Pulmonary: Effort: Pulmonary effort is normal. No tachypnea, accessory muscle usage or respiratory distress. Breath sounds: Normal breath sounds. No stridor. No wheezing, rhonchi or rales. Abdominal: Palpations: Abdomen is soft. Tenderness: There is no abdominal tenderness. There is no guarding or rebound. Musculoskeletal: Cervical back: Normal range of motion and neck supple. No rigidity or tenderness. Lymphadenopathy: Cervical: No cervical adenopathy. Skin: General: Skin is warm and dry. Neurological: Mental Status: He is alert and oriented to person, place, and time. ASSESSMENT/PLAN: 1. Sore throat - ICD9: 462, ICD10: J02.9 (primary diagnosis) - STREP A MOLECULAR (POC) 2. Strep throat - ICD9: 034.0, ICD10: J02.0 Strep test positive. Placed on amoxicillin. Red flags prompt reevaluation discussed. Patient was educated on supportive therapies. Patient will follow up with primary care provider as needed. Patient was instructed to immediately proceed to emergency room for any new, worsening, or symptoms lasting longer than anticipated. The patient's clinical presentation is otherwise unremarkable at this time. Based on exam and clinical finding, the patient is stable for discharge. Plan of care was discussed with patient. Patient verbalizes understanding and agrees to plan of care. This note was generated using [employer] software. It may contain errors in wording, punctuation, or spelling. Telly Awad APRN.PADDY documented in this encounter [facility] Evaluation note Note Date & Type Note Facility Evaluation note Diagnosis Sore throat- Primary Acute pharyngitis Strep throat Streptococcal sore throat Suspected COVID-19 virus infection documented in this encounter [facility] Health Concerns Infection Onset Date Last Indicated Resolved Time COVID-19 Rule-Out 10/01/2022 10/01/2022 Summary Purpose Family History No Family History Records FoundNo Family History Records Found Advance Directives No Advanced Directives Records FoundNo Advanced Directives Records Found Additional Source Comments Source Comments (unrecognize d section and content) In the event this informatio n is protected by the Federal Confidentiality of Alcohol and Drug Abuse Patient Records regulations: The Federal rules restrict any use of the information to criminally investigate or prosecute any alcohol or drug abuse patient.[facility] Reason for Visit (unrecogniz ed section and content) Reason Comments Sore Throat ST, congestion, VENTURA a nd bodyaches x 4 days Specialty Diagnoses / Procedures Referred By Luba t Referred To Contact Internal Medicine / [facility] Diagnoses Sore throat sore throat, congestion, headache and bodyaches Procedures OFFICE/OUTPATIENT ESTABLISHED MOD MDM 30-39 MIN EST SAME DAY Telly Awad APRN.SIDE GLUER [address] [place] [address] Telly Awad APRN.SIDE GLUER [address] [place] [address] Referral ID Status Reason Start Date Expiration Date Visits Re quested Visits Authorized [id number] Closed 10/01/2022 08/09/2023 1 1 (unrecognized sect ion and content) No Status Records FoundNo Status Records Found INFORMATION SOURCE (unrecogn ized section and content) DATE CREATED AUTHOR 10/02/2022 [facility] DATE CREATED AUTHOR 'S VIET ATION 09/09/2024 [facility] FOR RECORDS PERTAINING TO PATIENTS WHO ARE OR HAVE BEEN ENROLLED IN A CHEMICAL DEPENDENCY/SUBSTANCEABUSE PROGRAM, SOME INFORMATION MAY BE OMITTED. This clinical summary was aggregated from multiple sources. Caution should be exercised in using it in the provision of clinical care. This summary normalizes information from multiple sources, and as a consequence, information in this document may materially change the coding, format and clinical context of patient data. In addition, data may be omitted in some cases. CLINICAL DECISIONS SHOULD BE BASED ON THE PRIMARY CLINICAL RECORDS. [facility] [employer] [facility]. provides no warranty or guarantee of the accuracy or completeness of information in this document.
[2025-01-15] MEDS: Tetracaine 0.5% Ophthalmic Bottle 1 DRP OPHTHALMIC (10:40)
[2025-01-15] MEDS: Fluorescein 1 MG STRIP 1 STRIP OPHTHALMIC (10:40)
--- NOTE | 2025-01-15 10:46 | ED.RN ---
PT DOES NOT HAVE CONTACTS OR GLASSES PRESENT. HAD EYES DILATED AT [facility] WITHIN THE LAST HOUR BEFORE BEING SENT OVER TO ED. LIGHT SENSITIVE AND UNABLE TO DO THE ACUITY TEST WELL
[2025-01-15] MEDS: Erythromycin Ophthalmic (NSY) 1 GM OPTH.TUBE 1 APPLIC EACH EYE (11:51)
== END 2025-01-15 11:54 | disposition home or self-care (01) ==
PROVIDERS: Emergency Provider Emergency Medicine; PCP Nurse Practitioner Family; Visit Provider Emergency Medicine
DX: H10.13 Acute atopic conjunctivitis, bilateral (principal); H18.822 Corneal disorder due to contact lens, left eye; F17.210 Nicotine dependence, cigarettes, uncomplicated; Z79.899 Other long term (current) drug therapy
CPT/HCPCS: 99283